=== PATIENT | female | born 1995 | race Caucasian/White ===

== ENCOUNTER 2016-12-12 13:12 | Emergency (ER) | payer OTHER ==
[~2016-12-12] VITALS: Ht 165.1 cm; Wt 100.8 kg
[2016-12-12 13:40] VITALS: BP 117/59
--- NOTE | 2016-12-12 14:40 | NUR ---
PATIENT PRESENTS TO ED WITH C/O BUG BITE ON LLQ PAIN X 3 DAYS WITH SWELLING AND DISCHARGED; DENIES FEVER, N/V/D;DENIES N/V/D; SKIN IS PINK/WARM/DRY; AAOX4 WITH EVEN AND STEADY GAIT; LUNGS CLEAR BL; HR EVEN AND REGULAR; PT DENIES ANY FEVER, CP, SOB, OR COUGH AT THIS TIME; PATIENT STATES PAIN OF 7/10 AT THIS TIME;PATIENT POSITIONED FOR COMFORT; HOB ELEVATED; BEDRAILS UP X2; BED DOWN. ER MD MADE AWARE OF PT STATUS.
--- NOTE | 2016-12-12 15:01 | NUR ---
Dr padron at bedside.
[2016-12-12] MEDS ORDERED: cefTRIAXone 1,000 MG in LIDOCAINE 1% ***ER ONLY *** 2.1 ML IM ONE (15:10)
--- NOTE | 2016-12-12 15:45 | NUR ---
Patient discharged with v/s stable. Written and verbal after care instructions given and explained.Patient alert, oriented and verbalized understanding of instructions. Ambulatory with steady gait. All questions addressed prior to discharge. ID band removed. Patient advised to follow up with PMD. Rx of BACTRIM AND KEFLEX given. Patient educated on indication of medication including possible reaction and side effects. Opportunity to ask questions provided and answered.
[2016-12-12 15:46] VITALS: BP 128/76
== END 2016-12-12 15:45 | disposition home or self-care (01) ==
LOC: MED 13:12
DX: L03.311 Cellulitis of abdominal wall (principal)
CPT/HCPCS: 96372; 99283; J0696; J2001

== ENCOUNTER 2018-04-07 14:01 | Emergency (ER) | payer OTHER ==
[~2018-04-07] VITALS: Ht 167.6 cm; Wt 113.4 kg
[2018-04-07 15:32] VITALS: BP 129/76
--- NOTE | 2018-04-07 15:38 | NUR ---
AFTER COLLECTING FLU SAMPLE PT AMBULATES BACK TO THE LOBBY
--- NOTE | 2018-04-07 17:56 | NUR ---
PATIENT AMBULATED TO ER BED 8
--- NOTE | 2018-04-07 18:00 | NUR ---
BIB SELF WITH C/O COUGH, RHINORRHEA AND DIZZY SINCE YESTERDAY. DENIES NVD OR FEVER. TOOK TYLENOL YESTERDAY AT 1700 WITH NO RELIEF. STATES THROAT PAIN 5/10. DENIES OTHER SYMPTOMS AT THIS TIME.
[2018-04-07 18:58] VITALS: BP 129/76
--- NOTE | 2018-04-07 18:59 | NUR ---
Patient discharged with v/s stable. Written and verbal after care instructions given and explained. Patient alert, oriented and verbalized understanding of instructions. Ambulatory with steady gait. All questions addressed prior to discharge. ID band removed. Patient advised to follow up with PMD. Rx of dimetapp, altamist, flonase given. Patient educated on indication of medication including possible reaction and side effects. Opportunity to ask questions provided and answered.
== END 2018-04-07 18:59 | disposition home or self-care (01) ==
LOC: MED 14:01
DX: J06.9 Acute upper respiratory infection, unspecified (principal)
CPT/HCPCS: 36415; 87804; 99283

== ENCOUNTER 2018-11-29 12:40 | Emergency (ER) | payer OTHER ==
[~2018-11-29] VITALS: Ht 165.1 cm; Wt 117.9 kg
[2018-11-29 12:47] VITALS: BP 119/77
--- NOTE | 2018-11-29 12:50 | NUR ---
PATIENT AMBULATED TO BED 5.
--- NOTE | 2018-11-29 13:04 | NUR ---
DR. MAHMOOD AT BEDSIDE EVALUATING PATIENT.
--- NOTE | 2018-11-29 13:07 | NUR ---
PT BEING EVALUATED BY ER AT THIS TIME.
--- NOTE | 2018-11-29 13:08 | NUR ---
PT PRESENTED TO THE ED WITH THE CHIEF C/O COUGH WITH PHLEGM. DENIES BLOOD IN COUGH. LUNGS CLEAR. DENIES CHEST PAIN. NO RESPIRATORY DISTRESS NOTED. DENIES FEVER. TAKING OVER THE COUNTER MEDS FOR COLD W/O RELIEF. STATES THROAT PAIN OF 4/10. DENIES OTHER PROBLEM AT THIS TIME.
[2018-11-29 13:24] VITALS: BP 119/77
--- NOTE | 2018-11-29 13:24 | NUR ---
Patient discharged with v/s stable. Written and verbal after care instructions given and explained. Patient verbalized understanding. Ambulatory with steady gait. All questions addressed prior to discharge. Advised to follow up with PMD.
== END 2018-11-29 13:24 | disposition home or self-care (01) ==
LOC: MED 12:40
DX: B34.9 Viral infection, unspecified (principal)
CPT/HCPCS: 99281

== ENCOUNTER 2019-07-20 15:33 | Emergency (ER) | payer OTHER, SELFPAY ==
[~2019-07-20] VITALS: Ht 165.1 cm; Wt 113.4 kg
[2019-07-20 15:37] VITALS: BP 147/83
--- NOTE | 2019-07-20 15:37 | NUR ---
Patient ambulated to bed 10
--- NOTE | 2019-07-20 16:05 | NUR ---
24 Y/O FEMALE PRESENTS WITH SORE THROAT X3 DAYS. PT STATES SHES BEEN TAKING TYLENOL WITHOUT RELIED, LAST NIGHT SHE TOOK ONE NORCO AND THAT HELPED RELIEVED THE PAIN. TONSILS APPEAR ERYTHEMATOUS AND SWOLLEN, NO BLISTERS NOTED ON TONSILS. AIRWAY REMAINS UNOBSTRUCTED. REPORTS SUBJECTIVE FEVER/CHILLS. DENIES COUGH/SOB/CP. DENIES CONTACT WITH COVID PTS. NO PMH NKA
--- NOTE | 2019-07-20 16:05 | NUR ---
COVID AND STREP PERFORMED AT BEDSIDE AND WALKED TO LAB
[2019-07-20 17:17] VITALS: BP 147/83
--- NOTE | 2019-07-20 17:17 | NUR ---
Patient discharged with v/s stable. Written and verbal after care instructions given and explained. Patient alert, oriented and verbalized understanding of instructions. Ambulatory with steady gait. All questions addressed prior to discharge. ID band removed. Patient advised to follow up with PMD. Rx of NAPROSYN, PENICILLIN given. Patient educated on indication of medication including possible reaction and side effects. Opportunity to ask questions provided and answered.
--- NOTE | 2019-07-25 18:05 | NUR ---
LAB CALLED RECIEVED BY MICHAEL HARDING. PT RESULT FOR COVID 19 POSITIVE RELAYED TO. PT RESULT FORWARDED TO [facility].
== END 2019-07-20 17:17 | disposition home or self-care (01) ==
LOC: EEVIPCON 15:33 → MED 15:33
DX: J02.0 Streptococcal pharyngitis (principal); F17.210 Nicotine dependence, cigarettes, uncomplicated; Z20.828 Contact with and (suspected) exposure to other viral communicable diseases
CPT/HCPCS: 87081; 99283; U0003

== ENCOUNTER 2020-02-22 16:18 | Emergency (ER) | payer MEDICAID, SELFPAY ==
[~2020-02-22] VITALS: Ht 170.2 cm; Wt 121.1 kg
[2020-02-22 16:21] VITALS: BP 121/74
--- NOTE | 2020-02-22 16:23 | NUR ---
Patient ambulated to [facility] for further care.
--- NOTE | 2020-02-22 16:25 | NUR ---
24 y/o female from home c/o right hand pain s/p closing car door on hand 3 days ago. Mild bruising noted to palm of hand. Swelling noticable. +cms, cap refill <2 seconds. Skin warm, dry, intact. VSS
--- NOTE | 2020-02-22 16:47 | NUR ---
Dr. Matthews with pt for MSE.
[2020-02-22] MEDS ORDERED: IBUPROFEN 600 MG TAB PO ONE (17:30)
--- NOTE | 2020-02-22 18:02 | NUR ---
applied boxer splint to right arm without any issues
[2020-02-22 18:04] VITALS: BP 121/74
--- NOTE | 2020-02-22 18:05 | NUR ---
Patient discharged with v/s stable. Written and verbal after care instructions given and explained. Patient alert, oriented and verbalized understanding of instructions. Ambulatory with steady gait. All questions addressed prior to discharge. ID band removed. Patient advised to follow up with PMD. Rx of Naprosyn 500mg given. Patient educated on indication of medication including possible reaction and side effects. Opportunity to ask questions provided and answered.
== END 2020-02-22 18:05 | disposition home or self-care (01) ==
LOC: MED 16:18
DX: S62.336A Displaced fracture of neck of fifth metacarpal bone, right hand, initial encounter for closed fracture (principal); W22.8XXA Striking against or struck by other objects, initial encounter; Y93.89 Activity, other specified; Y92.89 Other specified places as the place of occurrence of the external cause; Y99.8 Other external cause status
CPT/HCPCS: 73130; 99283